=== PATIENT | female | born 1955 | race Caucasian/White ===

== ENCOUNTER 2020-07-01 10:27 | Outpatient (REF) | payer MEDICARE, SELFPAY ==
[2020-07-01 13:01] LABS: Folate 7.3 ng/mL (> or = 4.0); Vitamin B12 312 pg/mL (200-900)
[2020-07-01 13:37] LABS: Anion Gap 13 (12-20); Blood Urea Nitrogen 13 mg/dL (9-16); Carbon Dioxide 29 mmol/L (22-29); Chloride 104 mmol/L (96-108); Estimated Glomerular Filt Rate > 60; Glucose Random 91 mg/dL (60-115); Potassium 3.9 mmol/L (3.3-5.1); Sodium 142 mmol/L (135-145)
[2020-07-01 13:49] LABS: T4 Thyroxine 10.4 ug/dL (4.5-12.0); Thyroid Stimulating Hormone 0.64 uIU/mL (0.32-4.0)
== END 2020-07-01 10:28 | disposition home or self-care (01) ==
LOC: HO.LAB 10:27
PROVIDERS: PCP Internal Medicine; Visit Provider Psychiatry & Neurology Neurology
DX: G30.9 Alzheimer's disease, unspecified (principal)
CPT/HCPCS: 36415; 80051; 82565; 82607; 82746; 82947; 84436; 84443; 84520